=== PATIENT | female | born 1950 | race African-American/Black ===

== ENCOUNTER → 2016-08-01 | Outpatient (CLI) | payer MEDICARE ==
[~2016-08-01] MED LIST: IOHEXOL 300 MG/ML 75 ML VIAL IV ONE
[2016-08-01 12:33] LABS: CREATININE 0.8 mg/dL (0.6-1.0); GFR 86.3
--- NOTE | 2016-08-01 13:37 | RAD ---
Indication chest cold with shortness of air for 2 months. Axial images through the chest were obtained. The examination was not tailored for the detection of pulmonary embolus. 75 cc of Omnipaque 300 was administered intravenously. No prior CT imaging of the chest is available. Note is made of a plain film examination 05/19/2016. Imaging through the upper abdomen is unremarkable. The thoracic aorta appears unremarkable. Significant hilar or mediastinal adenopathy is not seen. Significant degenerative changes are noted in the lower cervical spine. Acute parenchymal infiltrate or dominant soft tissue mass is not seen in either lung. IMPRESSION: No acute or significant finding seen in the chest PQRS Compliance Statement: One or more of the following individualized dose reduction techniques were utilized for this examination: 1. Automated exposure control 2. Adjustment of the mA and/or kV according to patient size 3. Use of iterative reconstruction technique
== END | disposition home or self-care (01) ==
LOC: CT 10:33
PROVIDERS: ATTEND Internal Medicine
DX: R06.02 Shortness of breath (principal)
CPT/HCPCS: 36415; 71260; 82565; Q9967